=== PATIENT | female | born 1990 | race Native Hawaiian/Other Pacific Islander ===

== ENCOUNTER 2024-11-16 10:13 | Emergency (ER) | payer BC ==
[~2024-11-16] VITALS: Ht 162.6 cm; Wt 59.0 kg
[2024-11-16 11:07] VITALS: BP 102/71; TEMP 98.3; O2SAT 99
== END 2024-11-16 11:08 | disposition home or self-care (01) ==
LOC: ER 10:22
DX: T83.092A Other mechanical complication of nephrostomy catheter, initial encounter (principal); Z85.41 Personal history of malignant neoplasm of cervix uteri; Z85.43 Personal history of malignant neoplasm of ovary; Y84.8 Other medical procedures as the cause of abnormal reaction of the patient, or of later complication, without mention of misadventure at the time of the procedure; Y92.89 Other specified places as the place of occurrence of the external cause